=== PATIENT | male | born 1955 | race Caucasian/White ===

== ENCOUNTER → 2016-03-06 | Outpatient (CLI) | payer BC ==
[~2016-03-06] VITALS: Ht 170.2 cm; Wt 104.3 kg
[~2016-03-06] MED LIST: ASPI81TA85 PO; CYCL10TA PO; FINA5TAB2 PO; FISH120012 PO; GLUC500T53 PO; HYDR12.55 PO; LIDOCAINE 2% INJ 100 MG/5 ML SDV (FOR ANES.) As Ordered ONE; MILK140C PO; MULTCAP12 PO; NS 1,000 ML IV SCH; OMEP20CA3 PO; PROPOFOL 200 MG/20 ML VIAL As Ordered ONE; SING10TA32 PO; VALS1TAB46 PO; ZYRT10CA PO
--- NOTE | 2016-03-06 07:54 | ROOR ---
Patient Name: Nile Velez Procedure Date: 03/06/2016 7:29 AM Date of : 1955 Age: 60 Room: [facility] Gender: Male Note Status: Finalized Procedure: Colonoscopy to Cecum + Cold Snare Polypectomy + Hemoclip Indications: Screening for colorectal malignant neoplasm, Last colonoscopy: 2005 Providers: Abner Baca MD Referring MD: Yi Jacobsen NP Requesting Provider: Medicines: Monitored Anesthesia Care Complications: No immediate complications. Procedure: Pre-Anesthesia Assessment: - The heart rate, respiratory rate, oxygen saturations, blood pressure, adequacy of pulmonary ventilation, and response to care were monitored throughout the procedure. The Colonoscope was introduced through the anus and advanced to the cecum, identified by appendiceal orifice and ileocecal valve. The colonoscopy was performed without difficulty. The patient tolerated the procedure well. The quality of the bowel preparation was excellent. Findings: The perianal and digital rectal examinations were normal. Non-bleeding internal hemorrhoids were found during retroflexion. The hemorrhoids were small and Grade I (internal hemorrhoids that do not prolapse). A medium polyp was found at 40 cm proximal to the anus. The polyp was sessile. The polyp was removed with a cold snare. Resection and retrieval were complete. To prevent bleeding after the polypectomy, one hemostatic clip was successfully placed (MR conditional). There was no bleeding at the end of the procedure. The exam was otherwise without abnormality on direct and retroflexion views. Impression: - Non-bleeding internal hemorrhoids. - One medium polyp at 40 cm proximal to the anus, removed with a cold snare. Resected and retrieved. Clip (MR conditional) was placed. - The examination was otherwise normal on direct and retroflexion views. - The exam was otherwise normal to the cecum. Recommendation: - Patient has a contact number available for emergencies. The signs and symptoms of potential delayed complications were discussed with the patient. Return to normal activities tomorrow. Written discharge instructions were provided to the patient. - Discharge patient to home. - Continue present medications. - Await pathology results. - Telephone GI clinic for pathology results in 1 week. - Repeat colonoscopy for surveillance based on pathology results. - Return to referring physician. - The findings and recommendations were discussed with the patient's family. Abner Baca MD Abner Baca MD 03/06/2016 7:54:19 AM This report has been signed electronically. Number of Addenda: 0 Note Initiated On: 03/06/2016 7:29 AM Estimated Blood Loss: Estimated blood loss: none.
[2016-03-06 08:17] VITALS: BP 116/69
== END ==
LOC: M OPP 06:52
PROVIDERS: ATTEND Internal Medicine Gastroenterology
DX: Z12.11 Encounter for screening for malignant neoplasm of colon (principal); D12.6 Benign neoplasm of colon, unspecified; K64.0 First degree hemorrhoids; I10 Essential (primary) hypertension; B17.10 Acute hepatitis C without hepatic coma; Z96.659 Presence of unspecified artificial knee joint; Z96.619 Presence of unspecified artificial shoulder joint; Z79.01 Long term (current) use of anticoagulants; Z79.899 Other long term (current) drug therapy

== ENCOUNTER → 2016-10-18 | Outpatient (REF) | payer BC ==
[~2016-10-18] MED LIST changes: -LIDOCAINE 2% INJ 100 MG/5 ML SDV (FOR ANES.) As Ordered ONE; -NS 1,000 ML IV SCH; -PROPOFOL 200 MG/20 ML VIAL As Ordered ONE
[2016-10-24 00:06] LABS: HEPATITIS C QUANTITATION HCV Not Detected IU/mL (.)
== END ==
LOC: M LAB REF 11:31
PROVIDERS: ATTEND Nurse Practitioner Adult Health
DX: B19.20 Unspecified viral hepatitis C without hepatic coma (principal)

== ENCOUNTER → 2017-11-20 | Outpatient (REF) | payer BC ==
[2017-11-21 10:26] LABS: ALPHA FETOPROTEIN TUMOR QUANT 4.3 NG/ML (<8.1)
[2017-11-24 14:16] LABS: HEPATITIS C QUANTITATION HCV Not Detected IU/mL (.)
== END ==
LOC: M LAB REF 12:53
DX: B19.20 Unspecified viral hepatitis C without hepatic coma (principal)
CPT/HCPCS: 87522

== ENCOUNTER → 2018-03-18 | Outpatient (CLI) | payer BC ==
--- NOTE | 2018-03-18 16:53 | REP ---
Duplex extremity venous ultrasound: Left lower extremity. History: Left knee pain. Findings: The deep veins are anechoic and fully compressible from the groin to the popliteal fossa in the left lower extremity. Color flow imaging is homogeneous. Spectral Doppler interrogation demonstrates intact respiratory variation in flow and normal manual augmentation of flow. There is no evidence of deep vein thrombosis. Impression: Negative left lower extremity duplex venous ultrasound. No evidence of deep vein thrombosis. Electronically Signed by Cresencio Diallo MD 03/18/2018 04:44 P
== END ==
LOC: M RAD 16:15
PROVIDERS: ATTEND Orthopaedic Surgery
DX: M25.562 Pain in left knee (principal); M17.12 Unilateral primary osteoarthritis, left knee

== ENCOUNTER → 2018-10-27 | Outpatient (REF) | payer BC ==
[~2018-10-27] MED LIST changes: +OMEP1CAP73 PO; -OMEP20CA3 PO; -VALS1TAB46 PO; +VALS1TAB66 PO
[2018-10-27 15:04] LABS: CA19-9 TUMOR MARKER,CARBOHYDRA 4.9 U/ML (<35.0)
[2018-10-29 14:07] LABS: HEPATITIS C QUANTITATION HCV Not Detected IU/mL (.)
== END ==
LOC: M LAB REF 12:58
PROVIDERS: ATTEND Nurse Practitioner Adult Health
DX: B19.20 Unspecified viral hepatitis C without hepatic coma (principal); K76.0 Fatty (change of) liver, not elsewhere classified

== ENCOUNTER → 2019-04-23 | Outpatient (CLI) | payer BC ==
[~2019-04-23] MED LIST changes: +METHACHOLINE KIT (J7674) INH ONE
--- NOTE | 2019-04-23 09:55 | PFTRPT ---
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 Review Status: Not Reviewed Pre-Bronch Post-Bronch Pred Actual %Pred Actual %Chng SPIROMETRY FVC (L) 4.29 3.67 85 3.58 -2 FEV1 (L) 3.20 2.55 79 2.51 -1 FEV1/FVC (%) 75 70 92 70 FEF 25% (L/sec) 7.63 3.79 49 4.13 9 FEF 50% (L/sec) 4.82 2.02 41 1.92 -5 FEF 75% (L/sec) 1.39 0.83 59 0.58 -29 FEF 25-75% (L/sec) 2.56 1.75 68 1.55 -11 FEF Max (L/sec) 8.41 6.87 81 5.75 -16 FIVC (L) 3.74 3.57 -4 FIF 50% (L/sec) 4.60 7.26 157 6.73 -7 FIF Max (L/sec) 7.30 6.96 -4 Expiratory Time (sec) 6.59 7.50 13 Back Extrap Vol (L) 0.08 0.12 53 Time To FEFmax (sec) 0.063 0.098 56
== END ==
LOC: M CARPUL 04-20 07:28
PROVIDERS: ATTEND Internal Medicine Pulmonary Disease
DX: R06.00 Dyspnea, unspecified (principal)
CPT/HCPCS: 94070; J7674

== ENCOUNTER → 2019-10-21 | Outpatient (REF) | payer MEDICARE, BC ==
[~2019-10-21] MED LIST changes: -ASPI81TA85 PO; +ASPI81TA86 PO; +CYCL-707 PO; -CYCL10TA PO; -METHACHOLINE KIT (J7674) INH ONE
[2019-10-21 21:52] LABS: CA19-9 TUMOR MARKER,CARBOHYDRA 5.3 U/ML (<35.0)
[2019-10-21 21:57] LABS: HEPATITIS C VIRUS ABY INDEX > 11.0 INDEX (<0.8)
== END ==
LOC: M LAB REF 18:49
PROVIDERS: ATTEND Nurse Practitioner Adult Health
DX: B19.20 Unspecified viral hepatitis C without hepatic coma (principal); K76.0 Fatty (change of) liver, not elsewhere classified

== ENCOUNTER → 2019-10-26 | Outpatient (REF) | payer MEDICARE, BC ==
[2019-10-28 23:07] LABS: HEPATITIS C QUANTITATION HCV Not Detected IU/mL (.)
== END ==
LOC: M LAB REF 16:25
PROVIDERS: ATTEND Nurse Practitioner Adult Health
DX: B19.20 Unspecified viral hepatitis C without hepatic coma (principal); K76.0 Fatty (change of) liver, not elsewhere classified

== ENCOUNTER → 2020-07-25 | Outpatient (CLI) | payer BC, MEDICARE ==
[~2020-07-25] MED LIST changes: +ISOVUE-370 76% 100ML VIAL As Ordered ONE
== END ==
LOC: M RAD 18:05
PROVIDERS: ATTEND Nurse Practitioner Adult Health
DX: I71.2 Thoracic aortic aneurysm, without rupture (principal)
CPT/HCPCS: 71260; Q9967

== ENCOUNTER → 2020-11-10 | Outpatient (REF) | payer MEDICARE ==
[~2020-11-10] MED LIST changes: -ISOVUE-370 76% 100ML VIAL As Ordered ONE
[2020-11-10 13:36] LABS: CA19-9 TUMOR MARKER,CARBOHYDRA 8.4 U/ML (<35.0)
[2020-11-11 15:07] LABS: HEPATITIS C QUANTITATION HCV Not Detected IU/mL (.)
== END ==
LOC: M LAB REF 11:34
PROVIDERS: ATTEND Nurse Practitioner Adult Health
DX: B18.2 Chronic viral hepatitis C (principal)

== ENCOUNTER → 2021-08-17 | Outpatient (REF) | payer MEDICARE ==
[2021-08-20 19:06] LABS: HEPATITIS C QUANTITATION HCV Not Detected IU/mL (.)
== END ==
LOC: M LAB REF 16:09
PROVIDERS: ATTEND Nurse Practitioner Adult Health
DX: B19.20 Unspecified viral hepatitis C without hepatic coma (principal)

== ENCOUNTER → 2021-08-29 | Outpatient (CLI) | payer MEDICARE ==
[~2021-08-29] MED LIST changes: +ISOVUE-370 76% 100ML VIAL As Ordered ONE
== END ==
LOC: M RAD 15:46
PROVIDERS: ATTEND Nurse Practitioner Adult Health
DX: I71.2 Thoracic aortic aneurysm, without rupture (principal)
CPT/HCPCS: 71260; Q9967

== ENCOUNTER → 2021-09-06 | Outpatient (CLI) | payer MEDICARE ==
[~2021-09-06] MED LIST changes: -ISOVUE-370 76% 100ML VIAL As Ordered ONE
== END ==
LOC: M RAD 07:15
PROVIDERS: ATTEND Nurse Practitioner Adult Health
DX: K76.0 Fatty (change of) liver, not elsewhere classified (principal)

== ENCOUNTER → 2022-07-04 | Outpatient (REF) | payer MEDICARE ==
[~2022-07-04] MED LIST changes: +MONT-5 PO; -SING10TA32 PO
== END ==
LOC: M LAB REF 16:10
PROVIDERS: ATTEND Nurse Practitioner Adult Health
DX: R20.2 Paresthesia of skin (principal)

== ENCOUNTER → 2022-09-18 | Outpatient (REF) | payer MEDICARE ==
[2022-09-18 14:08] LABS: CA19-9 TUMOR MARKER,CARBOHYDRA 3.7 U/ML (<35.0)
[2022-09-20 12:08] LABS: HEPATITIS C QUANTITATION HCV Not Detected IU/mL (.)
== END ==
LOC: M LAB REF 12:32
PROVIDERS: ATTEND Nurse Practitioner Family
DX: K76.0 Fatty (change of) liver, not elsewhere classified (principal)

== ENCOUNTER 2023-03-24 07:08 | Day surgery (SDC) | payer MEDICARE ==
[~2023-03-24] VITALS: Ht 172.7 cm; Wt 98.0 kg
[~2023-03-24 07:08] MED LIST changes: +ALBU6.7H6 INH; +ALLE180T33 PO; +BAYE81TA10 PO; +CHOL100012 PO; +FAMO40TA3 PO; +FISH1CAP26 PO; +IRBE150T27 PO; +MILK500C PO; +MONT10TA97 PO; +MULT-90 PO; +NS 1,000 ML IV ONE; +SEMA1PEN2 SC
[2023-03-24] MEDS ORDERED: LIDOCAINE 2% 100MG/5ML SDV (FOR ANES.) As Ordered ONE (07:53)
[2023-03-24] MEDS ORDERED: propofoL 200 MG/20 ML VIAL As Ordered ONE (07:53)
[2023-03-24] MEDS ORDERED: fentaNYL 100 MCG/2 ML INJECTION As Ordered ONE (07:54)
[2023-03-24 08:22] VITALS: TEMP 97
[2023-03-24 08:41] VITALS: BP 150/99; O2SAT 98
== END 2023-03-24 08:55 | disposition home or self-care (01) ==
LOC: M OPP 07:08
PROVIDERS: ATTEND Internal Medicine Gastroenterology
DX: Z86.010 Personal history of colon polyps (principal); K64.0 First degree hemorrhoids; K22.89 Other specified disease of esophagus; K44.9 Diaphragmatic hernia without obstruction or gangrene; R12 Heartburn; G47.30 Sleep apnea, unspecified; E11.9 Type 2 diabetes mellitus without complications; Z79.51 Long term (current) use of inhaled steroids; Z79.891 Long term (current) use of opiate analgesic; Z79.899 Other long term (current) drug therapy
CPT/HCPCS: 43239; 88305; G0105; J3010

== ENCOUNTER → 2023-08-07 | Outpatient (REF) | payer MEDICARE ==
[~2023-08-07] MED LIST changes: -NS 1,000 ML IV ONE
[2023-08-07 13:33] LABS: CA19-9 TUMOR MARKER,CARBOHYDRA 4.1 U/ML (<35.0)
[2023-08-08 16:15] LABS: HCV RNA QUANTITATION <15 NOT DETECTED IU/mL (NOT DETECTED); HCV RNA log10 <1.18 NOT DETECTED Log IU/mL (NOT DETECTED)
== END ==
LOC: M LAB REF 11:29
PROVIDERS: ATTEND Nurse Practitioner Family
DX: Z86.19 Personal history of other infectious and parasitic diseases (principal)

== ENCOUNTER → 2023-09-11 | Outpatient (CLI) | payer MEDICARE | LOC: M RAD 09:33 | PROVIDERS: ATTEND Nurse Practitioner Family | DX: K74.00 Hepatic fibrosis, unspecified (principal); K76.0 Fatty (change of) liver, not elsewhere classified; B19.20 Unspecified viral hepatitis C without hepatic coma ==